=== PATIENT | male | born 1995 | race African-American/Black ===

== ENCOUNTER 2017-11-10 10:00 | Emergency (ER) | payer OTHER ==
[~2017-11-10] VITALS: Ht 193 cm; Wt 104.3 kg
[2017-11-10 13:23] VITALS: BP 121/67
== END 2017-11-10 13:30 | disposition home or self-care (01) ==
LOC: EME 10:00
DX: J02.9 Acute pharyngitis, unspecified (principal)
CPT/HCPCS: 80048; 84484; 85027; 87651 90; 99281; 99284; J0561